=== PATIENT | female | born 2000 | race Caucasian/White ===

== ENCOUNTER 2018-02-21 23:57 | Emergency (ER) | payer BC, OTHER ==
[~2018-02-21 23:57] MED LIST: IBUP-1618 PO
--- NOTE | 2018-02-22 00:02 | ER Report ---
History and Physical Time Seen By MD: 00:01 HPI/ZURDO CHIEF COMPLAINT: Sharp right sternal pain HISTORY OF PRESENT ILLNESS: 17-year-old female presents with approximately 6 hours of right sternal pain. She is unable to sleep due to the security the pain. She notes no shortness of breath, fever, chills or productive cough. She denies leg swelling or calf pain. She recalls no traumatic injuries. Patient denies significant past medical history. Patient notes the pain gets worse with deep inspiration or movement. She rates it at a 8/10. She notes no alleviating factors REVIEW OF SYSTEMS: Respiratory: No cough, no dyspnea. Cardiovascular: As above Gastrointestinal: No vomiting, no abdominal pain. Musculoskeletal: No back pain. Allergies: Coded Allergies: No Known Drug Allergies (Verified , 02/22/18) Home Meds Discontinued Reported Medications Ibuprofen (Motrin) 400 Mg Tablet, 400 MG PO Q6-8H 1, #20 0 Refills 03/24/07 [none] No Conflict Check 03/24/07 Reviewed Nurses Notes: Yes Old Medical Records Reviewed: Yes Constitutional Vital Sign - Last 24 Hours 02/21/18 02/22/18 02/22/18 02/22/18 23:57 00:02 00:02 00:12 Temp 97.9 Pulse ??? 98 83 Resp 16 26 B/P (MAP) 149/97 149/97 (114) Pulse Ox 98 99 O2 Delivery Room Air 02/22/18 02/22/18 02/22/18 02/22/18 00:27 00:42 00:57 01:12 Pulse 75 67 68 75 Resp 17 10 17 Pulse Ox 99 98 96 02/22/18 02/22/18 02/22/18 02/22/18 01:27 01:30 01:42 01:47 Pulse ??? 64 67 B/P (MAP) 141/90 (107) Pulse Ox 91 92 02/22/18 01:59 B/P (MAP) 135/86 (102) Physical Exam General Appearance: The patient is alert, has no immediate need for airway protection and no current signs of toxicity. Vital signs stable, afebrile, pulse ox normal HEENT: Pupils equal and round no injection. TMs normal, oropharynx without redness or exudate, mucous. Membranes are moist Respiratory: Chest is non tender, lungs are clear to auscultation. Moderate chest wall tenderness along the right sternal margin, increased pain with compression of the chest wall, no crepitus Cardiac: regular rate and rhythm, no murmur Gastrointestinal: Abdomen is soft and non tender, no masses, bowel sounds normal. Musculoskeletal: Neck: Neck is supple and non tender. No lymphadenopathy, no meningismus Extremities have full range of motion and are non tender. No edema, no calf tenderness Skin: No rashes or lesions. DIFFERENTIAL DIAGNOSIS: After history and physical exam differential diagnosis was considered for chest pain including but not limited to myocardial ischemia, pericarditis pulmonary embolus, chest wall pain, costochondritis, pleural inflammation and pulmonary infectious causes. Medical Decision Making Data Points Result Diagram: 02/22/18 0025 02/22/18 0025 Laboratory Hematology Test 02/22/18 00:25 Red Blood Count 5.46 M/uL (4.17-5.56) Mean Corpuscular Volume 79.5 fL (80.0-96.0) Mean Corpuscular Hemoglobin 27.5 pg (26.0-33.0) Mean Corpuscular Hemoglobin Concent 34.6 g/dL (32.0-36.0) Red Cell Distribution Width 12.7 % (11.5-14.5) Mean Platelet Volume 8.9 fL (7.2-11.1) Neutrophils (%) (Auto) 41.2 % (39.4-72.5) Lymphocytes (%) (Auto) 47.6 % (17.6-49.6) Monocytes (%) (Auto) 8.4 % (4.1-12.4) Eosinophils (%) (Auto) 2.5 % (0.4-6.7) Basophils (%) (Auto) 0.3 % (0.3-1.4) Nucleated RBC Relative Count (auto) 0.1 /100WBC Neutrophils # (Auto) 3.1 K/uL (2.0-7.4) Lymphocytes # (Auto) 3.6 K/uL (1.3-3.6) Monocytes # (Auto) 0.6 K/uL (0.3-1.0) Eosinophils # (Auto) 0.2 K/uL (0.0-0.5) Basophils # (Auto) 0.0 K/uL (0.0-0.1) Nucleated RBC Absolute Count (auto) 0.01 K/uL D-Dimer Quantitative (PE/DVT) < 0.27 ug/ml (0-0.50) Sodium Level 142 mmol/L (137-145) Potassium Level 3.2 mmol/L (3.5-5.0) Chloride Level 103 mmol/L (98-107) Carbon Dioxide Level 24 mmol/L (22-31) Blood Urea Nitrogen 15 mg/dl (7-18) Creatinine 0.70 mg/dl (0.52-1.04) Glomerular Filtration Rate Calc > 60.0 Random Glucose 106 mg/dl (75-110) Calcium Level 9.8 mg/dl (8.4-10.2) Total Bilirubin 0.2 mg/dl (0.2-1.3) Aspartate Amino Transf (AST/SGOT) 17 U/L (0-35) Alanine Aminotransferase (ALT/SGPT) 29 U/L (0-56) Alkaline Phosphatase 63 U/L (0-126) Troponin I 0.016 ng/ml Total Protein 7.7 g/dl (6.3-8.2) Albumin 4.4 g/dl (3.5-5.0) Human Chorionic Gonadotropin, Qual Negative (NEGATIVE) Chemistry Test 02/22/18 00:25 White Blood Count 7.5 k/uL (4.5-11.0) Red Blood Count 5.46 M/uL (4.17-5.56) Hemoglobin 15.0 g/dL (12.0-16.0) Hematocrit 43.4 % (34.0-47.0) Mean Corpuscular Volume 79.5 fL (80.0-96.0) Mean Corpuscular Hemoglobin 27.5 pg (26.0-33.0) Mean Corpuscular Hemoglobin Concent 34.6 g/dL (32.0-36.0) Red Cell Distribution Width 12.7 % (11.5-14.5) Platelet Count 194 K/uL (150-450) Mean Platelet Volume 8.9 fL (7.2-11.1) Neutrophils (%) (Auto) 41.2 % (39.4-72.5) Lymphocytes (%) (Auto) 47.6 % (17.6-49.6) Monocytes (%) (Auto) 8.4 % (4.1-12.4) Eosinophils (%) (Auto) 2.5 % (0.4-6.7) Basophils (%) (Auto) 0.3 % (0.3-1.4) Nucleated RBC Relative Count (auto) 0.1 /100WBC Neutrophils # (Auto) 3.1 K/uL (2.0-7.4) Lymphocytes # (Auto) 3.6 K/uL (1.3-3.6) Monocytes # (Auto) 0.6 K/uL (0.3-1.0) Eosinophils # (Auto) 0.2 K/uL (0.0-0.5) Basophils # (Auto) 0.0 K/uL (0.0-0.1) Nucleated RBC Absolute Count (auto) 0.01 K/uL D-Dimer Quantitative (PE/DVT) < 0.27 ug/ml (0-0.50) Glomerular Filtration Rate Calc > 60.0 Calcium Level 9.8 mg/dl (8.4-10.2) Total Bilirubin 0.2 mg/dl (0.2-1.3) Aspartate Amino Transf (AST/SGOT) 17 U/L (0-35) Alanine Aminotransferase (ALT/SGPT) 29 U/L (0-56) Alkaline Phosphatase 63 U/L (0-126) Troponin I 0.016 ng/ml Total Protein 7.7 g/dl (6.3-8.2) Albumin 4.4 g/dl (3.5-5.0) Human Chorionic Gonadotropin, Qual Negative (NEGATIVE) Coagulation Test 02/22/18 00:25 D-Dimer Quantitative (PE/DVT) < 0.27 ug/ml EKG/Imaging EKG Interpretation 12 lead EK Rhythm: normal sinus rhythm with sinus arrhythmia [place]: normal QRS: normal ST segments: normal, no evidence of ischemia or dysrhythmia Imaging X-ray: Two-view chest x-ray was obtained. I viewed the images myself on the PACS system. My interpretation of the images is: No infiltrate, no effusion, normal mediastinum. The radiologist interpretation had no clinically significant variation from this interpretation. ED Course/Re-evaluation Clinical Indication for ER IV: IV Access ED Course Patient was admitted to an examination room. H&P was done. The differential diagnoses was considered. On clinical examination. Patient has fairly sharp right sternal pain. Diagnostic evaluation is undertaken. Patient's treated with Toradol and Zofran. Her diagnostic studies are unremarkable. Normal EKG, normal troponin, normal chest x-ray. Patient continues to have fairly significant pain despite Toradol 30 mg per she's given fentanyl 50 g IV.. She is discharged home with diagnosis of costochondritis with a conservative treatment plan of ibuprofen 600 mg 3 times daily. She is sent home with a prepack of hydrocodone 2 tablets for additional pain relief. Throughout the night. She is advised to apply heating pad to the affected area. Patient advised to follow-up with [facility] if unimproved in 3-5 days. Decision to Disposition Date: Feb 22, 2018 Decision to Disposition Time: 01:25 Depart Departure Latest Vital Signs Vital Signs Date Time Temp Pulse Resp B/P (MAP) Pulse Ox O2 Delivery O2 Flow Rate FiO2 02/22/18 01:59 135/86 (102) 02/22/18 01:47 67 92 02/22/18 00:57 17 02/22/18 00:02 97.9 Room Air Impression: Primary Impression: Costochondritis, acute Condition: Improved Disposition: HOME OR SELF-CARE Referrals: BENNIE MCGUIRE MD (PCP) New Scripts No Active Prescriptions or Reported Meds Patient Instructions: Costochondritis (ED) Additional Instructions: Take ibuprofen 200 mg 3 tablets 3 times a day with food for inflammatory pain relief LUCIO MAYERS DO Feb 22, 2018 00:02
[2018-02-22] MEDS ORDERED: KETOROLAC 30 MG/ML VIAL IVP ONE (00:15)
--- NOTE | 2018-02-22 00:28 | EKG ---
FACILITY: [facility] - [place] PATIENT NAME: HETAL CONNORS : [id number] MR: [id number] V: [id number] EXAM DATE: ORDERING PHYSICIAN: LUCIO MAYERS TECHNOLOGIST: FERNANDA Test Reason : RIGHT STRENAL PAIN Blood Pressure : / mmHG Vent. Rate : 074 BPM Atrial Rate : 074 BPM P-R Int : 156 ms QRS Dur : 082 ms QT Int : 380 ms P-R-T Axes : 031 003 035 degrees QTc Int : 421 ms Normal sinus rhythm with sinus arrhythmia Normal ECG No previous ECGs available Confirmed by NESTOR CORDERO ([id number]) on 02/22/2018 6:44:59 AM Referred By: TALIB Confirmed By:NESTOR CORDERO
[2018-02-22 00:38] LABS: PLATELET COUNT, AUTOMATED 194 K/uL (150-450)
[2018-02-22] MEDS ORDERED: fentaNYL CITR 100 MCG/2 ML AMP IVP ONE (01:20)
--- NOTE | 2018-02-22 01:40 | RADIOLOGY IMAGING REPORT ---
FACILITY: [facility] [place] PATIENT NAME: Charley Valladares : 2000 MR: [id number] V: [id number] EXAM DATE: ORDERING PHYSICIAN: LUCIO MAYERS TECHNOLOGIST: Location: [facility] Patient: Charley Valladares : 2000 Visit/Account:[id number] Date of Sevice: 02/22/2018 CHEST: Indication: Sternal pain. Technique: Frontal and lateral views were obtained. Comparison: None. Skeletal and soft tissue structures: Intact and unremarkable. Heart and mediastinum: Within normal limits. Lung connors: Well-expanded and clear. No focal opacities. No vascular congestion. Pleural spaces: No evidence of pneumothorax or effusion. Impression: No acute process. Report Dictated By: Anthony Woody MD at 02/22/2018 1:34 AM Report E-Signed By: Anthony Woody MD at 02/22/2018 1:35 AM WSN:[id number]
[2018-02-22] MEDS ORDERED: ACET/HYDROC 5/325MG TH ER ONLY 2 TAB/BOTTLE PO ONE (01:45)
[2018-02-22 01:59] VITALS: BP 135/86
== END 2018-02-22 01:57 | disposition home or self-care (01) ==
LOC: ER 02-22 01:09
DX: M94.0 Chondrocostal junction syndrome [Tietze] (principal)
CPT/HCPCS: 71046; 84484; 84703; 85025; 85379; 93005; 96374; 96375; 99284; J1885; J3010; 82040; 82247; 82310; 82374; 82435; 82565; 82947; 84075; 84132; 84155; 84295; 84450; 84460; 84520